=== PATIENT | female | born 1995 | race Caucasian/White ===

== ENCOUNTER 2018-01-14 22:20 | Emergency (ER) | payer OTHER, BC ==
[~2018-01-14] VITALS: Ht 170.2 cm; Wt 76.0 kg
[~2018-01-14 22:20] MED LIST: BACT800T5 PO
[2018-01-14 22:23] VITALS: BP 127/77; PULSE 89; RESP 18; TEMP 98.2; O2SAT 98
[2018-01-14] MEDS ORDERED: CYCL10TA PO (23:00)
[2018-01-14] MEDS ORDERED: IBUP-232 PO (23:00)
[2018-01-14] MEDS ORDERED: CYCLOBENZAPRINE HCL 10 MG TAB PO ONE (23:00)
[2018-01-14] MEDS ORDERED: IBUPROFEN 600 MG TAB PO ONE (23:00)
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
[2018-01-14 23:18] VITALS: BP 123/75; TEMP 98.2
== END 2018-01-14 23:20 | disposition home or self-care (01) ==
LOC: PHED 22:20
DX: M62.838 Other muscle spasm (principal); V49.40XA Driver injured in collision with unspecified motor vehicles in traffic accident, initial encounter
CPT/HCPCS: 99283